=== PATIENT | female | born 1970 | race Caucasian/White ===

== ENCOUNTER 2016-08-07 17:33 | Emergency (ER) | payer MEDICAID ==
[~2016-08-07] VITALS: Ht 165.1 cm; Wt 107.0 kg
[~2016-08-07 17:33] MED LIST: ALBU18HF PO; ALBU8.5H5 INH
[2016-08-07] MEDS ORDERED: OXYC-229 PO (18:10)
[2016-08-07] MEDS ORDERED: ALPR0.25 PO (18:10)
[2016-08-07] MEDS ORDERED: OXYcodone/APAP 5/325MG TABLET ONE (18:15)
[2016-08-07] MEDS ORDERED: OXYcodone/APAP 5/325MG TABLET PO ONE (18:30)
[2016-08-07 19:50] VITALS: BP 110/52
== END 2016-08-07 20:12 | disposition home or self-care (01) ==
LOC: ED 19:59
DX: S86.811A Strain of other muscle(s) and tendon(s) at lower leg level, right leg, initial encounter (principal); G43.909 Migraine, unspecified, not intractable, without status migrainosus; J45.909 Unspecified asthma, uncomplicated; Z90.49 Acquired absence of other specified parts of digestive tract; Z98.51 Tubal ligation status; Z88.0 Allergy status to penicillin; W19.XXXA Unspecified fall, initial encounter; Y93.89 Activity, other specified; Y92.410 Unspecified street and highway as the place of occurrence of the external cause; Y99.8 Other external cause status; Z88.8 Allergy status to other drugs, medicaments and biological substances
CPT/HCPCS: 99284

== ENCOUNTER 2016-09-14 18:06 | Emergency (ER) | payer MEDICAID ==
[~2016-09-14] VITALS: Ht 165.1 cm; Wt 113.3 kg
[~2016-09-14 18:06] MED LIST changes: +ALPR0.25 PO; +OXYC-229 PO
[2016-09-14] MEDS ORDERED: SODIUM CHLORIDE 0.9% 1,000ML IVBOLUS ONE (18:30)
[2016-09-14] MEDS ORDERED: ONDANSETRON 2MG/ML, 2ML IVPush ONE (18:30)
[2016-09-14 19:05] LABS: BLOOD UREA NITROGEN 10 mg/dL (7-18)
[2016-09-14 19:09] LABS: ASPARTATE AMINO TRANSFERASE 16 U/L (15-37)
[2016-09-14] MEDS ORDERED: ONDANSETRON 2MG/ML, 2ML ONE (19:37)
[2016-09-14 21:08] VITALS: BP 126/81
== END 2016-09-14 21:13 | disposition home or self-care (01) ==
LOC: ED 21:00
DX: F11.23 Opioid dependence with withdrawal (principal); K21.9 Gastro-esophageal reflux disease without esophagitis; J45.909 Unspecified asthma, uncomplicated; Z88.0 Allergy status to penicillin; Z90.49 Acquired absence of other specified parts of digestive tract; Z88.5 Allergy status to narcotic agent
CPT/HCPCS: 36415; 80053; 85025; 87324; 89055; 96361; 96374; 99284; J2405; J7030

== ENCOUNTER 2017-04-18 15:18 | Emergency (ER) | payer MEDICAID ==
[~2017-04-18] VITALS: Ht 165.1 cm; Wt 118.5 kg
[~2017-04-18 15:18] MED LIST changes: -OXYC-229 PO; +OXYC-307 PO
[2017-04-18 15:19] VITALS: BP 164/101
[2017-04-18] MEDS ORDERED: LORazepam 1MG TABLET ONE (16:24)
[2017-04-18] MEDS ORDERED: LORazepam 1MG TABLET PO ONE (16:30)
== END 2017-04-18 16:34 | disposition home or self-care (01) ==
LOC: ED 16:20
DX: M54.5 Low back pain (principal); K21.9 Gastro-esophageal reflux disease without esophagitis; J45.909 Unspecified asthma, uncomplicated; G43.909 Migraine, unspecified, not intractable, without status migrainosus
CPT/HCPCS: 72110; 99284

== ENCOUNTER 2017-06-14 22:49 | Emergency (ER) | payer MEDICAID ==
[~2017-06-14] VITALS: Ht 165.1 cm; Wt 109.1 kg
[2017-06-14 22:51] VITALS: BP 162/114
[2017-06-14] MEDS ORDERED: CYCLOBENZAPRINE 10 MG TABLET PO STA (23:11)
[2017-06-14] MEDS ORDERED: OXYcodone/APAP 5/325MG TABLET ONE (23:29)
[2017-06-14] MEDS ORDERED: OXYcodone/APAP 5/325MG TABLET PO ONE (23:30)
[2017-06-14] MEDS ORDERED: CYCLOBENZAPRINE 10 MG TABLET ONE (23:32)
== END 2017-06-14 23:41 | disposition home or self-care (01) ==
LOC: ED 23:15
DX: S39.012A Strain of muscle, fascia and tendon of lower back, initial encounter (principal); S70.01XA Contusion of right hip, initial encounter; S70.11XA Contusion of right thigh, initial encounter; S80.01XA Contusion of right knee, initial encounter; S80.11XA Contusion of right lower leg, initial encounter; G43.909 Migraine, unspecified, not intractable, without status migrainosus; J45.909 Unspecified asthma, uncomplicated; F17.210 Nicotine dependence, cigarettes, uncomplicated; W10.9XXA Fall (on) (from) unspecified stairs and steps, initial encounter; Y93.89 Activity, other specified; Y92.098 Other place in other non-institutional residence as the place of occurrence of the external cause; Y99.8 Other external cause status
CPT/HCPCS: 99283

== ENCOUNTER 2017-07-15 08:39 | Emergency (ER) | payer MEDICAID ==
[~2017-07-15] VITALS: Ht 165.1 cm; Wt 120.0 kg
[2017-07-15] MEDS ORDERED: FLUT9.9S INH (09:21)
[2017-07-15] MEDS ORDERED: IBUPROFEN 200 MG TABLET ONE (09:51)
[2017-07-15] MEDS ORDERED: IBUPROFEN 200 MG TABLET PO ONE (10:00)
[2017-07-15 10:20] VITALS: BP 137/86
== END 2017-07-15 10:22 | disposition home or self-care (01) ==
LOC: ED 09:30
DX: J02.0 Streptococcal pharyngitis (principal); J18.0 Bronchopneumonia, unspecified organism; K21.9 Gastro-esophageal reflux disease without esophagitis; G43.909 Migraine, unspecified, not intractable, without status migrainosus; J45.909 Unspecified asthma, uncomplicated; Z87.891 Personal history of nicotine dependence
CPT/HCPCS: 71046; 87880; 93005; 99285

== ENCOUNTER 2017-08-07 20:24 | Emergency (ER) | payer MEDICAID ==
[~2017-08-07] VITALS: Ht 165.1 cm; Wt 121.1 kg
[~2017-08-07 20:24] MED LIST changes: +FLUT9.9S INH
[2017-08-07] MEDS ORDERED: SODIUM CHLORIDE FLUSH 10ML SYR IVF ONE (21:30)
[2017-08-07] MEDS ORDERED: SODIUM CHLORIDE 0.9% 1,000ML IVBOLUS ONE (21:30)
[2017-08-07] MEDS ORDERED: MORPHINE SULFATE 4 MG/ML, 1ML IVPush PRN (21:30)
[2017-08-07] MEDS ORDERED: PROMETHAZINE 25 MG/ML, 1ML IM ONE (21:30)
[2017-08-07] MEDS ORDERED: PROMETHAZINE 25 MG/ML, 1ML ONE (21:32)
[2017-08-07] MEDS ORDERED: MORPHINE SULFATE 4 MG/ML, 1ML ONE (21:33)
[2017-08-07 21:42] LABS: MICROSCOPIC AUTO
[2017-08-07 21:45] LABS: CULTURE INDICATED? YES
[2017-08-07] MEDS ORDERED: ONDANSETRON ODT 4 MG ONE (22:06)
[2017-08-07] MEDS ORDERED: ONDANSETRON ODT 4 MG PO ONE (22:30)
[2017-08-07 22:31] LABS: BASOPHILS # (AUTO) 0.05 x10^3/uL (0-0.1); BASOPHILS % (AUTO) 0 % (0-1); EOSINOPHILS # (AUTO) 0.53 x10^3/uL (0-0.4); EOSINOPHILS % (AUTO) 5 % (1-7); LYMPHOCYTES # (AUTO) 2.84 x10^3/uL (1-3.4); LYMPHOCYTES % (AUTO) 28 % (22-44); MD NO; MEAN CORPUSCULAR HGB CONC 33.3 g/dL (32.4-35.8); MEAN CORPUSCULAR VOLUME 87.2 fL (80-100); MONOCYTES # (AUTO) 0.74 x10^3/uL (0.2-0.8); MONOCYTES % (AUTO) 7 % (2-9); NEUTROPHILS # (AUTO) 6.09 x10^3/uL (1.8-6.8); NEUTROPHILS % (AUTO) 60 % (42-75); PLATELET COUNT 245 x10^3/uL (130-400); RED BLOOD COUNT 5.15 x10^6/uL (3.82-5.3); RED CELL DISTRIBUTION WIDTH 14.9 % (9.6-15.2)
[2017-08-07 22:44] LABS: ALANINE AMINOTRANSFERASE 24 U/L (12-78); ALBUMIN 3.5 g/dL (3.4-5.0); ANION GAP 6 mmol/L (5-15); CALCIUM 9.2 mg/dL (8.5-10.1); CHLORIDE 105 mmol/L (98-107)
[2017-08-07 22:46] LABS: ALKALINE PHOSPHATASE 63 U/L (45-117); BILIRUBIN,TOTAL 0.4 mg/dL (0.2-1.0); TOTAL PROTEIN 7.5 g/dL (6.4-8.2)
[2017-08-07] MEDS ORDERED: OMNIPAQUE 350 MG/ML, 100ML BOTTLE ONE (23:13)
[2017-08-07 23:39] VITALS: BP 135/91
== END 2017-08-08 00:12 | disposition home or self-care (01) ==
LOC: ED 23:22
DX: K29.00 Acute gastritis without bleeding (principal); R19.7 Diarrhea, unspecified; K21.9 Gastro-esophageal reflux disease without esophagitis; G89.29 Other chronic pain; J45.909 Unspecified asthma, uncomplicated
CPT/HCPCS: 36415; 74177; 80053; 81001; 83690; 85025; 87086; 96361; 96374; 99285; J7030; Q0162; Q9967

== ENCOUNTER 2017-08-22 16:41 | Emergency (ER) | payer MEDICAID ==
[~2017-08-22] VITALS: Ht 165.1 cm; Wt 122.3 kg
[2017-08-22 16:43] VITALS: BP 141/95
== END 2017-08-22 17:19 | disposition home or self-care (01) ==
LOC: ED 17:15
DX: J02.8 Acute pharyngitis due to other specified organisms (principal); B97.89 Other viral agents as the cause of diseases classified elsewhere; Z88.0 Allergy status to penicillin
CPT/HCPCS: 99281

== ENCOUNTER 2017-08-25 18:13 | Emergency (ER) | payer MEDICAID ==
[~2017-08-25] VITALS: Ht 165.1 cm; Wt 121.5 kg
[2017-08-25] MEDS ORDERED: ACETAMINOPHEN 500 MG TABLET PO ONE (18:30)
[2017-08-25] MEDS ORDERED: METOCLOPRAMIDE 10MG TABLET PO ONE (19:00)
[2017-08-25] MEDS ORDERED: DIPHENHYDRAMINE 25 MG CAPSULE PO ONE (19:00)
[2017-08-25] MEDS ORDERED: DIPHENHYDRAMINE 25 MG CAPSULE ONE (19:00)
[2017-08-25] MEDS ORDERED: ACETAMINOPHEN 500 MG TABLET ONE (19:00)
[2017-08-25] MEDS ORDERED: METOCLOPRAMIDE 10MG TABLET ONE (19:01)
[2017-08-25 20:06] LABS: BASOPHILS # (AUTO) 0.12 x10^3/uL (0-0.1); BASOPHILS % (AUTO) 1 % (0-1); EOSINOPHILS # (AUTO) 0.54 x10^3/uL (0-0.4); EOSINOPHILS % (AUTO) 6 % (1-7); LYMPHOCYTES # (AUTO) 2.17 x10^3/uL (1-3.4); LYMPHOCYTES % (AUTO) 23 % (22-44); MD NO; MEAN CORPUSCULAR HEMOGLOBIN 28.3 pg (27.0-34.8); MEAN CORPUSCULAR HGB CONC 32.9 g/dL (32.4-35.8); MEAN PLATELET VOLUME 8.8 fL (7.4-10.4); MONOCYTES # (AUTO) 0.73 x10^3/uL (0.2-0.8); MONOCYTES % (AUTO) 8 % (2-9); NEUTROPHILS % (AUTO) 63 % (42-75); PLATELET COUNT 258 x10^3/uL (130-400); RED BLOOD COUNT 4.96 x10^6/uL (3.82-5.3); RED CELL DISTRIBUTION WIDTH 14.4 % (9.6-15.2)
[2017-08-25 20:15] LABS: ALBUMIN 3.2 g/dL (3.4-5.0); ANION GAP 2 mmol/L (5-15); CALCIUM 8.5 mg/dL (8.5-10.1); CHLORIDE 109 mmol/L (98-107); CREATININE 0.71 mg/dL (0.55-1.02)
[2017-08-25 20:33] VITALS: BP 129/81
== END 2017-08-25 20:36 | disposition home or self-care (01) ==
LOC: ED 20:29
DX: J02.9 Acute pharyngitis, unspecified (principal); R51 Headache; H92.01 Otalgia, right ear
CPT/HCPCS: 36415; 80048; 82040; 85025; 99284; Q0163

== ENCOUNTER 2018-05-17 21:38 | Emergency (ER) | payer MEDICAID ==
[~2018-05-17] VITALS: Ht 165.1 cm; Wt 125.0 kg
[2018-05-17] MEDS ORDERED: DIAZEPAM 5 MG TABLET PO ONE (22:00)
[2018-05-17] MEDS ORDERED: ONDANSETRON ODT 4 MG PO ONE (22:00)
[2018-05-17] MEDS ORDERED: HYDROcodone/APAP 5/325 TABLET PO ONE (22:00)
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
[2018-05-17] MEDS ORDERED: ONDANSETRON ODT 4 MG ONE (22:19)
[2018-05-17] MEDS ORDERED: HYDROcodone/APAP 5/325 TABLET ONE (22:19)
[2018-05-17] MEDS ORDERED: DIAZEPAM 5 MG TABLET ONE (22:20)
[2018-05-17 22:24] LABS: BASOPHILS # (AUTO) 0.03 x10^3/uL (0-0.1); BASOPHILS % (AUTO) 0 % (0-1); EOSINOPHILS # (AUTO) 0.34 x10^3/uL (0-0.4); EOSINOPHILS % (AUTO) 4 % (1-7); LYMPHOCYTES # (AUTO) 2.56 x10^3/uL (1-3.4); LYMPHOCYTES % (AUTO) 27 % (22-44); MD NO; MEAN CORPUSCULAR HEMOGLOBIN 28.9 pg (27.0-34.8); MEAN CORPUSCULAR HGB CONC 33.5 g/dL (32.4-35.8); MEAN CORPUSCULAR VOLUME 86.2 fL (80-100); MEAN PLATELET VOLUME 8.6 fL (7.4-10.4); MONOCYTES # (AUTO) 0.72 x10^3/uL (0.2-0.8); MONOCYTES % (AUTO) 7 % (2-9); NEUTROPHILS # (AUTO) 6.03 x10^3/uL (1.8-6.8); NEUTROPHILS % (AUTO) 62 % (42-75); PLATELET COUNT 211 x10^3/uL (130-400); RED BLOOD COUNT 5.46 x10^6/uL (3.82-5.3); RED CELL DISTRIBUTION WIDTH 14.9 % (9.6-15.2)
[2018-05-17 22:33] LABS: ALANINE AMINOTRANSFERASE 25 U/L (12-78); ALBUMIN 3.7 g/dL (3.4-5.0); ANION GAP 6 mmol/L (5-15); CALCIUM 8.6 mg/dL (8.5-10.1); CHLORIDE 108 mmol/L (98-107)
[2018-05-17 22:38] LABS: ALKALINE PHOSPHATASE 65 U/L (45-117); BILIRUBIN,TOTAL 0.3 mg/dL (0.2-1.0); TOTAL PROTEIN 7.5 g/dL (6.4-8.2); TROPONIN I < 0.015 ng/mL (0.000-0.045)
--- NOTE | 2018-05-17 23:04 | NUR ---
PT STATES PAIN IMPROVED, CHEST PAIN DULL NOW
[2018-05-18 00:18] VITALS: BP 131/95
--- NOTE | 2018-05-18 00:18 | NUR ---
Patient/Caregiver given discharge instructions and they have confirmed that they understand the instructions. Patient ambulatory with steady gait.
== END 2018-05-18 00:31 | disposition home or self-care (01) ==
LOC: ED 23:59
DX: S29.012A Strain of muscle and tendon of back wall of thorax, initial encounter (principal); G89.11 Acute pain due to trauma; F41.1 Generalized anxiety disorder; K21.9 Gastro-esophageal reflux disease without esophagitis; G43.909 Migraine, unspecified, not intractable, without status migrainosus; J45.909 Unspecified asthma, uncomplicated; Z87.11 Personal history of peptic ulcer disease; V49.09XA Driver injured in collision with other motor vehicles in nontraffic accident, initial encounter; Y93.89 Activity, other specified; Y92.89 Other specified places as the place of occurrence of the external cause; Y99.8 Other external cause status
CPT/HCPCS: 36415; 71045; 80053; 84484; 85025; 93005; 99284; Q0162

== ENCOUNTER 2019-09-23 17:44 | Emergency (ER) | payer MEDICAID ==
[~2019-09-23] VITALS: Ht 165.1 cm; Wt 123.0 kg
--- NOTE | 2019-09-23 17:53 | NUR ---
PT TAKEN TO ROOM VIA WHEELCHAIR AT THIS TIME.
[2019-09-23] MEDS ORDERED: KETOROLAC 30 MG/1 ML ONE (18:22)
[2019-09-23] MEDS ORDERED: KETOROLAC 30 MG/1 ML IM ONE (18:30)
[2019-09-23] MEDS ORDERED: IBUPROFEN 600 MG TABLET PO ONE (18:30)
[2019-09-23] MEDS ORDERED: IBUPROFEN 600 MG TABLET ONE (18:31)
[2019-09-23 18:36] VITALS: BP 131/68
--- NOTE | 2019-09-23 18:48 | NUR ---
Pt states spontaneous R ankle pain after swimming yesterday. Medicated for pain.
== END 2019-09-23 19:47 | disposition home or self-care (01) ==
LOC: ED 19:30
DX: M19.071 Primary osteoarthritis, right ankle and foot (principal); F17.210 Nicotine dependence, cigarettes, uncomplicated
CPT/HCPCS: 99284

== ENCOUNTER 2019-10-17 21:28 | Emergency (ER) | payer MEDICAID ==
[~2019-10-17] VITALS: Ht 165.1 cm; Wt 122.8 kg
--- NOTE | 2019-10-17 22:20 | NUR ---
C++ QUANT DEVELOPER: PT TO ROOM FROM LOBBY
[2019-10-17] MEDS ORDERED: KETOROLAC 30 MG/1 ML IM ONE (22:30)
--- NOTE | 2019-10-17 22:33 | NUR ---
pt states she came in today due to a sore on the inner aspect of left breast. wound is approximately 1inch x 1 inch. states there is some brownish drainage coming from wound that she has been manually expressing. was seen at [facility] on monday for it and prescribed bactrim. pt states she does "not believe that the medication agrees with me, tirso had two fevers of 102 and been so tired since taking it and my entire left side is sore." pt nad, vss. placed on spo2/bp monitoring. wctm.
--- NOTE | 2019-10-17 22:36 | NUR ---
ena cano at bs for eval and poc.
[2019-10-17] MEDS ORDERED: KETOROLAC 30 MG/1 ML ONE (22:43)
[2019-10-17] MEDS ORDERED: ACETAMINOPHEN 325 MG TABLET PO ONE (23:00)
[2019-10-17] MEDS ORDERED: IBUPROFEN 600 MG TABLET PO ONE (23:00)
[2019-10-17] MEDS ORDERED: ACETAMINOPHEN 325 MG TABLET ONE (23:07)
[2019-10-17] MEDS ORDERED: IBUPROFEN 600 MG TABLET ONE (23:08)
--- NOTE | 2019-10-17 23:13 | NUR ---
PT MEDICATED PER MAR FOR PAIN. PT REFUSED IM MEDICATIONS DUE TO FEAR OF NEEDLES. VSS. NAD. WCTM. WAITING FOR TEST RESULTS.
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
--- NOTE | 2019-10-18 01:23 | NUR ---
pt resting in [place], states "i am in pain is there anything else i can get?" pt also states "the hydrocodone medication works really well for me." pt VSS, NAD, call light on lpa, no acute changes in condition, WCTM.
[2019-10-18 01:25] VITALS: BP 148/82
--- NOTE | 2019-10-18 01:53 | NUR ---
Patient given discharge instructions and they have confirmed that they understand the instructions. Patient ambulatory with steady gait. denies additional questions at this time. no pt belongings found in room after discharge. NAD. P/W/D.
== END 2019-10-18 01:54 | disposition home or self-care (01) ==
LOC: ED 22:59
DX: N61.1 Abscess of the breast and nipple (principal); L98.9 Disorder of the skin and subcutaneous tissue, unspecified; K21.9 Gastro-esophageal reflux disease without esophagitis; J45.909 Unspecified asthma, uncomplicated; Z88.0 Allergy status to penicillin; Z98.51 Tubal ligation status; Z90.49 Acquired absence of other specified parts of digestive tract; Z79.899 Other long term (current) drug therapy
CPT/HCPCS: 99284